=== PATIENT | female | born 1940 | race Caucasian/White ===

== ENCOUNTER 2017-01-08 06:24 | Day surgery (SDC) | payer OTHER ==
[2017-01-08] MEDS ORDERED: NS 500 ML IV ONE (06:28)
[2017-01-08] MEDS ORDERED: PROPOFOL 200 MG/20 ML VIAL IVP ONE (06:28)
[2017-01-08] MEDS ORDERED: BENZOCAINE UNIT DOSE SPRAY HURRICAINE MM ONE (06:28)
[2017-01-08] MEDS ORDERED: fentaNYL 100 MCG/2 ML INJ IVP ONE (06:28)
[2017-01-08] MEDS ORDERED: MIDAZOLAM 2 MG/2 ML VIAL IVP ONE (06:28)
--- NOTE | 2017-01-08 06:58 | CPEKG ---
Heart Rate: 101 RR Interval: 594 QRSD Interval: 92 QT Interval: 376 QTC Interval: 488 QRS [place]: 10 T Wave [place]: 38 EKG Severity - ABNORMAL ECG - EKG Impression: ATRIAL FIBRILLATION, V-RATE 81-129 EKG Impression: LOW VOLTAGE IN FRONTAL LEADS EKG Impression: BORDERLINE PROLONGED QT INTERVAL Electronically Signed By: Yosvany Chen 08-Jan-2017 07:55:53
[2017-01-08 07:23] LABS: ANION GAP 11 mEq/L (8-16); CALCIUM 9.5 mg/dL (8.5-10.4); CARBON DIOXIDE 20 mEq/l (22-31); CHLORIDE 111 mEq/L (97-110); CREATININE 0.8 mg/dL (0.6-1.0); GLOMERULAR FILTRATION RATE > 60; GLUCOSE 105 mg/dL (70-100); MAGNESIUM 2.2 mg/dL (1.6-2.3); POTASSIUM 4.2 mEq/L (3.5-5.2); SODIUM 142 mEq/L (134-144)
[2017-01-08 07:24] LABS: APTT 30.2 SEC (23.0-38.0); INR 1.28 (0.83-1.16)
[2017-01-08] MEDS ORDERED: PROPOFOL 200 MG/20 ML VIAL ONE ×2 (08:17)
--- NOTE | 2017-01-08 08:54 | CPEKG ---
Heart Rate: 98 RR Interval: 612 P-R Interval: 150 QRSD Interval: 104 QT Interval: 396 QTC Interval: 506 P [place]: 60 QRS [place]: 3 T Wave [place]: 24 EKG Severity - ABNORMAL ECG - EKG Impression: SINUS RHYTHM EKG Impression: SUPRAVENTRICULAR BIGEMINY EKG Impression: LOW VOLTAGE IN FRONTAL LEADS EKG Impression: BORDERLINE REPOL ABNORMALITY, ANT-LAT LEADS Electronically Signed By: Yosvany Chen 08-Jan-2017 23:27:03
--- NOTE | 2017-01-08 11:03 | CPIP ---
[f rep st] INVASIVE CARDIAC PROCEDURE DATE OF PROCEDURE: 01/08/2017 PROCEDURE PERFORMED: MARLO cardioversion. INDICATION FOR PROCEDURE: Atrial fibrillation with suboptimal rate control despite metoprolol succi kristi 100 mg p.o. b.i.d. and diltiazem extended release 180 mg daily. HISTORY: The patient is a pleasant 76-year-old female with atrial fibrillation which has been subop timally controlled on AV alice blocking medications. She is chronically anticoagulated with Xarelto 20 mg once daily. Secondary to suboptimal rate control, decision was made to pursue MARLO cardiovers ion. In anticipation of cardioversion, she discontinued her diltiazem on Friday January 06, 2017. She remained compliant with her metoprolol succinate 100 mg p.o. b.i.d., and her Xarelto 20 mg daily. Risks and benefits of the procedure were reviewed at length with the patient. After informed consen t was obtained and consents were signed for MARLO cardioversion and anesthesia, patient was evaluated by Anesthesia as well. After a time-out, patient received sedation with propofol. A bite block was in place. MARLO probe was passed without incident. MARLO probe was used to take images of all cardiac structures with detailed focus on the left atrial appendage and the left atrium. There is no evide nce of left atrial appendage thrombus or thrombus within the left atrium. Please see complete MARLO r eport for full details. MARLO probe was removed without incident. Patient underwent a single biphasic synchronized shock of 2 00 joules with muslim of sinus rhythm. She remained in a sinus rhythm with atrial bigeminy at a rate of 71 beats per minute. Blood pressure was 131/75. The patient awoke from this procedure without complications. She tolerated the procedure well. PLAN: 1. Patient will be discharged home. 2. Patient is scheduled to follow up with KAYE Sams in the first week of January 2017. 3. Patient will continue metoprolol succinate 100 mg p.o. b.i.d. 4. The patient will remain on Xarelto 20 mg daily without interruption. I have expressed the impor tance of her not missing a single dose of Xarelto in the setting of post cardioversion with atrial f ibrillation. 5. The patient is to discontinue her diltiazem 180 mg once daily. /[id number]/MODL
--- NOTE | 2017-01-08 16:28 | ECHO ---
[id number] + + [address] : : [facility] [address] : : [phone] + + Transesophageal Echocardiographic Report + -------+ :Name: MAGGIE CARRASCO BStudy Date: 01/08/2017 08:19 AM : : Hospital Admission Number: [id number] Locati on: CVC: :: 1940 Gender: Female : :Age: 76 yrs Race: WH : :Reason For Study: Eval LOAN : :History: Pre cardioversion : + -------+ Doppler Measurements \T\ Calculations TR max yanira: 233.0 cm/sec TR max P.7 mmHg RAP systole: 5.0 mmHg RVSP(TR): 26.7 mmHg Left Ventricle The left ventricular ejection fraction is normal. The rhythm is atrial fibrillation. Right Ventricle The right ventricular systolic function is normal. Atria The interatrial septum is intact with no evidence for an atrial septal defect. No left atrial mass or thrombus visualized. No thrombus is detected in the left atrial appendage. Mitral Valve There is mild mitral annular calcification. There is no mitral valve stenosis. There is moderate mitral regurgitation. Tricuspid Valve Normal tricuspid valve. There is mild tricuspid regurgitation. Right ventricular systolic pressure is normal. Aortic Valve The aortic valve is trileaflet. The aortic valve opens well. There is no aortic stenosis. There is no aortic insufficiency. Pulmonic Valve The pulmonic valve is normal in structure and function. There is no pulmonic valvular regurgitation. Vessels The aortic root is normal size. Conclusion A 2D transesophageal echocardiogram with color flow Doppler was performed. The left ventricular ejection fraction is normal. The rhythm is atrial fibrillation. The interatrial septum is intact with no evidence for an atrial septal defect by colorflow doppler. There is moderate mitral regurgitation. Normal tricuspid valve There is mild tricuspid regurgitation. The aortic valve is trileaflet. The aortic valve opens well. No left atrial mass or thrombus visualized. No thrombus is detected in the left atrial appendage. Proceeded with successful elective DC cardioversion. Right ventricular systolic pressure is normal. Final Reading Physician: Mack Acosta electronically signed on 01/08/2017 04:27 PM Ordering Physician: Mack Acosta Performed By: Mack Acosta
== END 2017-01-08 10:11 | disposition home or self-care (01) ==
LOC: FCATH 06:24
PROVIDERS: ATTEND Internal Medicine Cardiovascular Disease
PROC: 5A2204Z Restoration of Cardiac Rhythm, Single (ICD-10-PCS; principal; 2017-01-08)
PROC: B245ZZ4 Ultrasonography of Left Heart, Transesophageal (ICD-10-PCS; principal; 2017-01-08)
DX: I48.1 Persistent atrial fibrillation (principal); I10 Essential (primary) hypertension; Z85.828 Personal history of other malignant neoplasm of skin; Z87.891 Personal history of nicotine dependence; Z79.01 Long term (current) use of anticoagulants
CPT/HCPCS: J2704

== ENCOUNTER → 2017-04-02 | Day surgery (SDC) | payer OTHER ==
[~2017-04-02] MED LIST: ATROPINE SULFATE 1 MG/10 ML SYR IVP ONE; MIDAZOLAM 2 MG/2 ML VIAL IVP ONE; NALOXONE HCL 0.4 MG/ML INJ IVP PRN; NS 500 ML IV ONE; PROPOFOL 200 MG/20 ML VIAL ONE; fentaNYL 100 MCG/2 ML INJ IVP ONE
--- NOTE | 2017-04-02 09:08 | CPEKG ---
Heart Rate: 89 RR Interval: 674 QRSD Interval: 92 QT Interval: 400 QTC Interval: 487 QRS [place]: -1 T Wave [place]: 32 EKG Severity - ABNORMAL ECG - EKG Impression: ATRIAL FIBRILLATION EKG Impression: MULTIFORM VENTRICULAR PREMATURE COMPLEXES EKG Impression: ABERRANT COMPLEX, POSSIBLY SUPRAVENTRICULAR EKG Impression: LOW VOLTAGE IN FRONTAL LEADS EKG Impression: ATRIAL FIBRILLATION IS NEW IN COMPARISON TO PRIOR Electronically Signed By: Yosvany Chen 06-Apr-2017 09:16:27
[2017-04-02 09:41] LABS: APTT 30.3 SEC (23.0-38.0); INR 1.36 (0.83-1.16); PROTIME(PATIENT) 16.8 SEC (12.0-15.0)
--- NOTE | 2017-04-02 09:45 | PDANEPAE ---
ANE History of Present Illness 76 year old female with atrial fibrillation for CV. ANE Past Medical History - Cardiovascular History Hx Hypertension: Yes Hx Arrhythmias: Yes Hx Chest Pain: No Hx Coronary Artery / Peripheral Vascular Disease: No Hx CHF / Valvular Disease: No Hx Palpitations: Yes - Pulmonary History Hx COPD: No Hx Asthma/Reactive Airway Disease: Yes Hx Recent Upper Respiratory Infection: No Hx Oxygen in Use at Home: No Hx Sleep Apnea: No - Neurologic History Hx Cerebrovascular Accident: No Hx Seizures: No Hx Dementia: No - Endocrine History Hx Diabetes: No Hypothyroid: No Hyperthyroid: No Obesity: mild - Renal History Hx Renal Disorders: No - Liver History Hx Hepatic Disorders: No - Neurological & Psychiatric Hx Hx Neurological and Psychiatric Disorders: No - GI History GERD: mild ANE Review of Systems Review of systems is: negative Review of Systems: - Exercise capacity Exercise capacity: <4 METS ANE Patient History - Allergies Allergies/Adverse Reactions: Penicillins Allergy (Verified 02/06/14 15:21) - Home Medications Home medications: home medication list seen and reviewed Home Medications: DILTIAZEM 24HR ER 180 mg PO DAILY 01/08/17 [Last Taken 04/01/17] Metoprolol Succinate Xr 100 mg PO BID 01/08/17 [Last Taken 04/02/17] Xarelto 20 mg PO DAILY 01/08/17 [Last Taken 04/01/17] Furosemide [Lasix 20 MG (*)] 04/02/17 [Last Taken 04/01/17] - NPO status NPO Status: no food or drink >8 hours - Anes Hx Anes Hx: no prior problems - Smoking Hx Smoking Status: Former smoker - Alcohol Use Alcohol Use: Rarely - Family Anes Hx Family Anes Hx: neg - N/A ANE Labs/Vital Signs - Labs Result Diagrams: 04/02/17 09:00 - Vital Signs Vital Signs: reviewed preoperatively; see RN documention for details Height: 172.72 cm Weight: 90.718 kg ANE Physical Exam - Airway Neck exam: FROM Mallampati Score: Class 2 Mouth exam: normal dental/mouth exam - Pulmonary Pulmonary: no respiratory distress - Cardiovascular Cardiovascular: irregularly irregular - ASA Status ASA Status: III ANE Anesthesia Plan Anesthesia Plan: GA with mask Total IV Anesthesia: Yes
--- NOTE | 2017-04-02 09:46 | PDHPUP ---
History & Physical Update H&P update statement: This history and physical update is based on an assessment of the patient which was completed after admission or registration (within 24 hours), but prior to the surgery/procedure. H&P update: H&P reviewed & patient examined, no change in patient's condition since H&P completed
[2017-04-02 09:48] LABS: ANION GAP 8 mEq/L (8-16); CALCIUM 9.3 mg/dL (8.5-10.4); CARBON DIOXIDE 23 mEq/l (22-31); CHLORIDE 107 mEq/L (97-110); GLOMERULAR FILTRATION RATE 54; GLUCOSE 102 mg/dL (70-100); MAGNESIUM 2.4 mg/dL (1.6-2.3); POTASSIUM 4.6 mEq/L (3.5-5.2); SODIUM 138 mEq/L (134-144)
--- NOTE | 2017-04-02 09:59 | PDTEE1 ---
MARLO Cardioversion Procedure Procedure: electrical cardioversion Indications: atrial fibrillation Consent: signed and in chart Anticoagulation: xarelto Procedural Details: Pads were placed in anterior-posterior position. Synchronized shock was delivered. Synchronized cardioversion attempt #1: 200J Results: normal sinus rhythm Conclusions: successful cardioversion Patient Problems: Problems Problem Status Onset Atrial fibrillation Acute
--- NOTE | 2017-04-02 10:05 | CPEKG ---
Heart Rate: 69 RR Interval: 870 P-R Interval: 168 QRSD Interval: 94 QT Interval: 316 QTC Interval: 339 P [place]: 55 QRS [place]: -15 EKG Severity - ABNORMAL ECG - EKG Impression: SINUS RHYTHM EKG Impression: SUPRAVENTRICULAR BIGEMINY EKG Impression: BORDERLINE LEFT AXIS DEVIATION EKG Impression: LOW VOLTAGE THROUGHOUT EKG Impression: BORDERLINE R WAVE PROGRESSION, ANTERIOR LEADS EKG Impression: SINUS RHYTHM HAS REPLACED ATRIAL FIBRILLATION Electronically Signed By: Yosvany Chen 06-Apr-2017 09:16:52
--- NOTE | 2017-04-02 10:11 | POSTANESTH ---
Post Anesthetic Evaluation Cardiovascular Status: Normal, Stable, Similar to Pre-Op Cond Respiratory Status: Normal, Stable, Similar to Pre-op Cond. Level of Consciousness/Mental Status: Can Participate in Eval, Mildly Sleepy, Arousable Pain Control: Adequate, Prn Tx Ordered Nausea/Vomiting Control: Adequate, Prn Tx Ordered Complications Possibly Related to Anesthesia: None Noted
== END | disposition home or self-care (01) ==
LOC: FCATH 08:40
PROVIDERS: ATTEND Internal Medicine Interventional Cardiology
PROC: 5A2204Z Restoration of Cardiac Rhythm, Single (ICD-10-PCS; principal; 2017-04-02)
DX: I48.91 Unspecified atrial fibrillation (principal); I34.0 Nonrheumatic mitral (valve) insufficiency; R06.02 Shortness of breath; R53.83 Other fatigue
CPT/HCPCS: J2704

== ENCOUNTER → 2017-06-26 | Outpatient (CLI) | payer OTHER | LOC: BHFA 13:00 | PROVIDERS: ATTEND Internal Medicine Cardiovascular Disease | DX: I48.91 Unspecified atrial fibrillation (principal); Z79.899 Other long term (current) drug therapy ==